=== PATIENT | male | born 1995 | race Caucasian/White ===

== ENCOUNTER 2021-11-05 00:52 | Emergency (ER) | payer SELFPAY ==
[~2021-11-05] VITALS: Ht 175 cm; Wt 86.0 kg
[2021-11-05 01:13] LABS: HEMATOCRIT 50 % (40-54); HEMOGLOBIN 16.3 g/dL (13.3-17.7); MEAN CORPUSCULAR HEMOGLOBIN 30 pg (25-34); MEAN CORPUSCULAR HGB CONC 33 g/dL (32-36); MEAN CORPUSCULAR VOLUME 91 fL (80-99); MEAN PLATELET VOLUME 10.4 fL (9.0-12.2); PLATELET COUNT 345 10^3/uL (130-400); WHITE BLOOD COUNT 18.4 10^3/uL (4.3-11.0)
[2021-11-05] MEDS ORDERED: ONDANSETRON 4 MG/2 ML (SDV) Z0FRAN IVP ONE (01:15)
[2021-11-05] MEDS ORDERED: FAMOTIDINE 20MG/2ML IV (PEPCID) IVP ONE (01:15)
[2021-11-05 01:25] LABS: ALBUMIN 4.9 GM/DL (3.2-4.5); POTASSIUM 3.3 MMOL/L (3.6-5.0)
[2021-11-05 01:27] LABS: CALCIUM 9.4 MG/DL (8.5-10.1)
[2021-11-05 01:28] LABS: TOTAL PROTEIN 8.3 GM/DL (6.4-8.2)
[2021-11-05 01:29] LABS: BILIRUBIN,TOTAL 0.5 MG/DL (0.1-1.0)
[2021-11-05 01:32] LABS: CREATININE SERUM 1.29 MG/DL (0.60-1.30)
[2021-11-05 01:33] LABS: BILIRUBIN,DIRECT 0.2 MG/DL (0.0-0.3); BILIRUBIN,INDIRECT 0.3 MG/DL
[2021-11-05 02:38] LABS: BILIRUBIN,URINE NEGATIVE (NEGATIVE); CLARITY,URINE CLEAR; COLOR,URINE YELLOW; GLUCOSE, URINE (UA) NEGATIVE (NEGATIVE); KETONES,URINE NEGATIVE (NEGATIVE); LEUKOCYTE ESTERASE ,URINE NEGATIVE (NEGATIVE); NITRITE,URINE NEGATIVE (NEGATIVE); PROTEIN,URINE NEGATIVE (NEGATIVE)
[2021-11-05 02:44] LABS: BACTERIA,URINE NEGATIVE /HPF
[2021-11-05] MEDS ORDERED: NS 100 ML (IVPB) BAG IV ONE (02:45)
[2021-11-05] MEDS ORDERED: HOLD METFORMIN - RECEIVED CONTRAST 20 ML VIAL IV SCH (02:45)
[2021-11-05] MEDS ORDERED: CATHETER FLUSH 10 ML SYR IV PRN (02:45)
[2021-11-05] MEDS ORDERED: IOHEXOL 350 MG/ML 150 ML (OMNIPAQUE 350) VIAL IV ONE (02:45)
[2021-11-05 02:50] LABS: AMPHETAMINE SCREEN, URINE POSITIVE (NEGATIVE); BARBITURATE SCREEN URINE NEGATIVE (NEGATIVE); BENZODIAZEPINES SCREEN URINE NEGATIVE (NEGATIVE); CANNABINOID SCREEN, URINE NEGATIVE (NEGATIVE); COCAINE SCREEN URINE NEGATIVE (NEGATIVE); METHADONE STAT NEGATIVE (NEGATIVE); METHAMPHETAMINE SCREEN URINE S POSITIVE (NEGATIVE); OPIATE SCREEN URINE NEGATIVE (NEGATIVE); OXYCODONE STAT NEGATIVE (NEGATIVE); PROPOXYPHENE STAT NEGATIVE (NEGATIVE); TRICYCLIC ANTIDEPRESSANTS SCRE NEGATIVE (NEGATIVE)
[2021-11-05] MEDS ORDERED: TETANUS,DIPTH,PERTUSS P/F (BOOSTRIX) 0.5 ML VIAL IM ONE (03:00)
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
[2021-11-05] MEDS ORDERED: KETOROLAC 30 MG/ML VIAL IVP ONE (03:15)
[2021-11-05 03:17] VITALS: BP 133/82
--- NOTE | 2021-11-05 04:56 | Diagnostic Imaging Report ---
INDICATION: Trauma. TECHNIQUE: Multiple contiguous axial images were obtained through the brain and cervical spine without the use of intravenous contrast. Sagittal and coronal reformations through the cervical spine were then performed. Auto Exposure Controls were utilized during the CT exam to meet ALARA standards for radiation dose reduction. There is no prior study for comparison. CT brain findings: There were no extra-axial fluid collections. No intracranial hemorrhage. No intracranial mass or mass effect. No midline shift. The ventricles are normal in size and position. There were no focal parenchymal abnormalities in the brain. Calvarial windows appear unremarkable. CT cervical spine findings: There was no evidence of cervical spine fracture. There is no subluxation or malalignment. There is no significant degenerative change. IMPRESSION: Negative CT head Negative CT cervical spine. Dictated by: Dictated on workstation # [id number]
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
== END 2021-11-05 03:19 | disposition home or self-care (01) ==
LOC: ER 00:55
DX: S93.402A Sprain of unspecified ligament of left ankle, initial encounter (principal); S10.93XA Contusion of unspecified part of neck, initial encounter; S60.222A Contusion of left hand, initial encounter; F10.129 Alcohol abuse with intoxication, unspecified; F15.10 Other stimulant abuse, uncomplicated; I10 Essential (primary) hypertension; F17.290 Nicotine dependence, other tobacco product, uncomplicated; Z23 Encounter for immunization; X50.1XXA Overexertion from prolonged static or awkward postures, initial encounter
CPT/HCPCS: 70450; 71260; 72125; 73060; 73090; 73130; 73590; 73630; 74177; 80048; 80076; 80306; 81000; 85027; 90471; 93041; 96374; 96375; 99284; G0480; L4350; 36415; 80320; 90715